=== PATIENT | male | born 1960 | race Caucasian/White ===

== ENCOUNTER 2019-01-02 07:26 | Day surgery (SDC) | payer OTHER ==
[2019-01-02] MEDS ORDERED: LIDOCAINE 1% (MPF) 30 ML INJ (10:51)
[2019-01-02] MEDS ORDERED: ROCURONIUM 50 MG INJ (11:11)
[2019-01-02] MEDS ORDERED: PROPOFOL 20 ML (11:11)
[2019-01-02] MEDS ORDERED: SUCCINYLCHOLINE CHLORIDE 100 MG/5 ML SYG IV (11:11)
[2019-01-02] MEDS ORDERED: LIDOCAINE 2% (SDV) 5 ML INJ (11:11)
[2019-01-02] MEDS ORDERED: FENTAnyl 50 MCG/ML VIAL (11:11)
[2019-01-02] MEDS ORDERED: CEFAZOLIN 1 GM INJ (11:12)
[2019-01-02] MEDS ORDERED: MIDAZOLAM 1 MG/ML 2 ML INJ (11:12)
[2019-01-02] MEDS ORDERED: ROPIVACAINE 0.2% 20 ML VIAL (11:15)
[2019-01-02] MEDS ORDERED: METOCLOPRAMIDE 10 MG INJ (11:49)
[2019-01-02] MEDS ORDERED: DEXAMETHASONE 4 MG/ML 5 ML INJ (11:49)
[2019-01-02] MEDS ORDERED: FAMOTIDINE 20 MG INJ (11:49)
[2019-01-02] MEDS ORDERED: ONDANSETRON 4 MG INJ (11:49)
[2019-01-02] MEDS ORDERED: MEPERIDINE 25 MG INJ IV (12:00)
[2019-01-02] MEDS ORDERED: ONDANSETRON 4 MG INJ IV (12:00)
[2019-01-02] MEDS ORDERED: HYDROmorphONE 1 MG/5 ML IV SYRINGE IV ×3 (12:00)
[2019-01-02] MEDS ORDERED: OXYCODONE/ACETAMINOPHEN (5/325) TAB PO ×2 (12:00)
[2019-01-02] MEDS: BUPIVACAINE 0.5% (SDV) 30 ML INJ (12:00)
[2019-01-02] MEDS ORDERED: EPHEDrine 25 MG/5 ML SYG (12:02)
[2019-01-02] MEDS ORDERED: SUGAMMADEX SODIUM 200 MG/2 ML VIAL IV (12:02)
[2019-01-02] MEDS ORDERED: VANCOMYCIN 1 GM (PMX) 250 ML (13:02)
[2019-01-02] MEDS ORDERED: POLYMYXIN/BACITRACIN 1L IRRIG (13:26)
[2019-01-02] MEDS ORDERED: ALBUTEROL 0.083% (NEB) 2.5 MG/3 ML AMP (13:52)
[2019-01-02] MEDS: ALBUTEROL 0.083% (NEB) 2.5 MG/3 ML AMP HHN (13:55)
== END 2019-01-02 15:40 | disposition home or self-care (01) ==
LOC: SDS 07:26
DX: M19.041 Primary osteoarthritis, right hand (principal); G56.01 Carpal tunnel syndrome, right upper limb; I10 Essential (primary) hypertension; Z87.891 Personal history of nicotine dependence; E78.5 Hyperlipidemia, unspecified; E66.01 Morbid (severe) obesity due to excess calories; Z68.41 Body mass index [BMI] 40.0-44.9, adult
CPT/HCPCS: 25825; 73110-RT; 94664